=== PATIENT | female | born 1990 | race Caucasian/White ===

== ENCOUNTER 2017-06-05 05:19 | Emergency (ER) | payer OTHER ==
[~2017-06-05] VITALS: Ht 157.5 cm; Wt 57.2 kg
[~2017-06-05 05:19] MED LIST: ALPRAZOLAM1 MG PO; AMOXICILLIN500 M3 PO; AMOXIL 875 MG875 MG PO; AUGMENTIN 875 M1 TAB PO; BACTRIM DS TAB1 EACH PO; BLM PO; BUSPIRONE HCL10 M1 PO; CEPHALEXIN500 MG PO; CIPRO250 M1 PO; CIPRO500 M1 PO; CLINORIL 200MG200 MG PO; DIFLUCAN150 M1 PO; KEFLEX500 MG PO; LITHIUM CARBON300 M2 PO; LITHIUM CARBON300 M6 PO; LO LOESTRIN FE1 TAB PO; MEDROL4 M2 PO; PREDNISONE 20MG20 MG PO; PREDNISONE10 M2 PO; PYRIDIUM100 M1 PO; PYRIDIUM200 M1 PO; VICODIN 500 MG-1 TAB PO; VITAMIN D50000 IU PO
[2017-06-05 05:22] VITALS: BP 119/77
--- NOTE | 2017-06-05 05:31 | ED THROAT/DENTAL COMPLAINT ---
History of Present Illness General Chief Complaint: Sore Throat, Dental Pain Stated Complaint: PT C/O SORE THROAT ? STREP Source: patient Exam Limitations: no limitations Vital Signs & Intake/Output Vital Signs & Intake/Output Vital Signs Date Time Temp Pulse Resp B/P B/P Pulse O2 O2 Flow FiO2 Mean Ox Delivery Rate 06/05 0522 97.9 77 20 119/77 98 Room Air Allergies Coded Allergies: hydrocodone (ITCHING HANDS AND FEET AND BLOTCHES ALL OVER 11/28/15) nut - unspecified (ANAPHYLAXIS 11/28/15) venom-honey bee (BEE VENOM (HONEY BEE)) (PER PT DOESNT REMEMBER 11/28/15) Reconcile Medications Amoxicillin 500 MG TABLET 2 TAB PO BID strep throat Ciprofloxacin HCl (Cipro) 500 MG TABLET 1 TAB PO BID UTI Fluconazole (Diflucan) 150 MG TABLET 1 TAB PO ONCE yeast infection repeat in 1 week (a total of 2 doses) Fluconazole (Diflucan) 150 MG TABLET 1 TAB PO ONCE ABX USE Ibuprofen 600 MG TABLET 1 TAB PO TID PRN fever, pain with food NORETHINDRONE-E.ESTRADIOL-IRON (Lo Loestrin Fe 1-10 Tablet) 1MG-10(24) TABLET 1 TAB PO DAILY CONTROL (Reported) Phenazopyridine HCl (Pyridium) 100 MG TABLET 1 TAB PO TID PRN DYSURIA TAKE WITH FOOD URINE MAY CHANGE ORANGE Sulfamethoxazole/Trimethoprim (Bactrim Ds Tablet) 800 MG-160 MG TABLET 1 TAB PO BID uti Triage Nurses Notes Reviewed? yes Onset: Gradual Duration: day(s): Timing: recent history Injury Environment: home Severity: mild Modifying Factors: Improves With: rest. Associated Symptoms: sore throat HPI: 26 yo woman h/o strep throat presents with sore throat x 1 day, body aches, low grade temperatures. She notes that both of her parents have strep throat presently. She notes that she is able to eat, tolerates fluids without vomiting or abdominal pain. She is otherwise well. Past History Travel History Traveled to [place] past 21 day No Medical History Any Pertinent Medical History? see below for history Neurological: NONE EENT: NONE Cardiovascular: NONE Respiratory: asthma Gastrointestinal: NONE Hepatic: NONE Renal: KIDNEY INFECTION Musculoskeletal: NONE Psychiatric: NONE Endocrine: NONE Blood Disorders: NONE Cancer(s): NONE DIRECTOR OF RELIGIOUS ACTIVITIES/Reproductive: OVARIAN CYSTS History of MRSA: No History of VRE: No History of CDIFF: No Surgical History Surgical History: non-contributory, N Psychosocial History Who do you live with Mother Services at Home None What is your primary language B[place]ian Family History Family History, If Any: FATHER FH: heart disease Hx Contributory? No Review of Systems Review of Systems Constitutional: Reports: no symptoms. EENTM: Reports: no symptoms. Respiratory: Reports: no symptoms. Cardiovascular: Reports: no symptoms. GI: Reports: no symptoms. Genitourinary: Reports: no symptoms. Musculoskeletal: Reports: no symptoms. Skin: Reports: no symptoms. Neurological/Psychological: Reports: no symptoms. Hematologic/Endocrine: Reports: no symptoms. Immunologic/Allergic: Reports: no symptoms. All Other Systems: Reviewed and Negative Physical Exam Physical Exam General Appearance: well developed/nourished, no apparent distress Head: atraumatic, normal appearance Eyes: Bilateral: normal appearance, PERRL, EOMI. Ears: Bilateral: canal normal, Tympanic normal, bleeding, discharge. Nose: normal inspection Mouth/Throat: normal mouth inspection, pharyngeal erythema w/o exudate Neck: normal inspection, supple, full range of motion Cardiovascular/Respiratory: normal breath sounds Back: normal inspection, normal range of motion Neurologic/Psych: no motor/sensory deficits, awake, alert, oriented x 3 Skin: intact, normal color, warm/dry Core Measures ACS in differential dx? No Sepsis Present: No Sepsis Focused Exam Completed? No Progress Differential Diagnosis: odontogenic abscess, mita-tonsillar abscess, pharyngeal for. body, stomatitis/gingivitis Plan of Care: Orders Procedure Date/time Status THROAT CULTURE W/QUICK STREP 06/05 520 Complete Departure Departure Disposition: HOME OR SELF CARE Condition: Stable Clinical Impression Primary Impression: Strep throat Referrals: Ingrid DOMINGUEZ,Alyx Doe (PCP/Family) Departure Forms: Customer Survey General Discharge Information Prescriptions: Current Visit Scripts Amoxicillin 2 TAB PO BID #40 TAB Ibuprofen 1 TAB PO TID PRN fever, pain #30 TAB with food Fluconazole (Diflucan) 1 TAB PO ONCE #2 TAB repeat in 1 week (a total of 2 doses) Comments pt with +strep throat... rx for high dose amox given... as well as diflucan per pt's request due to concomitant yeast infections.... close follow up advised.
[2017-06-05] MEDS ORDERED: AMOXICILLIN500 M3 PO (06:08)
[2017-06-05] MEDS ORDERED: IBUPROFEN600 M1 PO (06:08)
[2017-06-05] MEDS ORDERED: DIFLUCAN150 M1 PO (06:11)
== END 2017-06-05 06:19 ==
LOC: ERH 05:19
DX: J02.0 Streptococcal pharyngitis (principal)